=== PATIENT | male | born 1960 | race Caucasian/White ===

== ENCOUNTER 2021-05-05 12:58 | Inpatient (IN) ==
[2021-05-05] MEDS ORDERED: cefTRIAXone SODIUM 2,000 MG/70 ML BAG IV STA (13:32)
--- NOTE | 2021-05-05 13:36 | Emergency Department Note ---
Impression & Plan S/P total knee replacement, Cellulitis of left leg ED Provider Note CHIEF COMPLAINT: LLE erythema/edema HISTORY OF PRESENT ILLNESS: Misha Melendez is a 60 year old male who recently underwent a left total knee replacement with Dr. Zaldivar on 04/27/20 who presents to the Emergency Department for evaluation of increased erythema and edema to his left lower extremity extending from his knee down his anterior camara which has been worsening over the past few days. Currently, he rates his discomfort as a 4/10 which worsens to palpation of the area. The patient states that he had been doing well following his surgery and his pain has been well controlled with Tramadol. He has been working with physical therapy and states that he had been progressing well until he started to develop the erythema and edema a few days ago. The patient did contact Orthopedics regarding this and was started on Keflex for possible infection, which he states he took one dose of yesterday, however after having a follow up appointment with Dr. Pineda in his office today, there were concerns for cellulitis with need for IV antibiotics so he was referred to the ED for further evaluation. The patient otherwise denies fevers/chills, chest pain, shortness of breath, palpitations, abdominal pain, nausea, vomiting, diarrhea or urinary symptoms. No other acute complaints. REVIEW OF SYSTEMS: 10 systems were reviewed and were negative unless otherwise stated in HPI as above PHYSICAL EXAM: VITALS: Vitals are noted on the nurse's note and reviewed by myself. Hypertensive, vital signs otherwise stable. General: Resting in bed, no acute distress HEENT: Normocephalic, PERRL, EOMI, oropharynx clear Neck: No cervical lymphadenopathy, non-tender, ROM intact without pain Resp: Good inspiratory effort on room air, lung sounds clear bilaterally CV: Regular rate and rhythm, peripheral pulses palpated Abd: Obese, soft, non-tender to palpation MSK/Integumentary: With attention to the LLE, post-op dressing in place to the anterior left knee/camara with dried blood, otherwise dry and intact. Erythema and 2+ pitting edema extending from the left knee down the anterior camara, warm and tender to the touch. ROM of the LLE intact but limited secondary to recent surgery. Moving toes/ankle, sensation and d/p pulse intact. Moving all other extremities without apparent pain or difficulty Neuro: Awake, alert, interacting and answering questions appropriately Differential diagnosis includes cellulitis, abscess, osteomyelitis, septic joint, MRSA infection, DVT, necrotizing fasciitis, dermatitis, drug eruption, as well as others were entertained. EMERGENCY DEPARTMENT COURSE: Physical exam and history were performed. Nursing triage notes, EMR, and medication list were personally reviewed. Patient who recently underwent a left total knee replacement with Dr. Zaldivar on 04/27/20 who presents to the Emergency Department for evaluation of increased erythema and edema to his left lower extremity extending from his knee down his anterior camara which has been worsening over the past few days. After being evaluated by Dr. Pineda in his office today, he was referred to the emergency department for further evaluation and IV antibiotics due to concerns for cellulitis. On exam, with attention to the LLE, postop dressing in place to the anterior left knee/camara with dried blood, otherwise dry and intact. Erythema and 2+ pitting edema extending from the left knee down the anterior camara, warm and tender to the touch. Range of motion of LLE intact but limited secondary to recent surgery. Moving toes/ankle, sensation and DP pulse intact. No other significant findings on exam. X-rays of the left knee and tib/fib were obtained reviewed by radiologist and myself as below. Images did show diffuse prominence of the soft tissues, however no acute osseous pathology. Intact total knee replacement. Labs were obtained and reviewed by myself as below. Of note, no leukocytosis with a WBC of 8.37. Mild anemia with hemoglobin 12.9 consistent with recent surgery. Electrolytes WNL. Renal indices stable. LFTs nondiagnostic. ESR elevated at 70 and CRP elevated at 9.65 consistent with inflammation. Lactate not elevated at 0.5. Blood cultures obtained, pending. I discussed the results of the above findings with the patient and his at bedside. He was started on Rocephin 2 g for cellulitic infection. Dr. Pineda did contact me directly and stated that he would admit the patient for ongoing management. The patient and his verbalized their understanding and agreement with this treatment plan. The chart was completed utilizing i3 membrane Voice Recognition Software. Grammatical errors, random word insertions, pronoun errors, and incomplete sentences are an occasional consequence of this system due to software limitations, ambient noise, and hardware issues. Any formal questions or concerns about the content, text, or information contained within the body of this dictation should be directly addressed to the provider for clarification. Past Med/Surg History Medical History History of asthma Surgical History History of appendectomy History of foot surgery Social History Smoking Status: Former smoker Second Hand Exposure: No; Do You Dip or Chew Tobacco: No; Tobacco Cessation Education Requested by Patient: No Hx Alcohol Use: Yes Hx Substance Use: No Preferred Language: Turkmen International [employer] Required: No Beliefs That Will Affect Care: None marital status: Current Living Situation: Spouse current occupational status: employed Other Information That Helps Us Care for You: No Feels Safe at Home: Yes Safety Concerns: Feels Safe At This Time Assistive Devices: Denture - Upper, Denture - Lower and Walker Allergies Allergies Allergy/AdvReac Type Severity Reaction Status Date / Time ibuprofen [From Advil] AdvReac Intermediate Nose Bleed Unverified 05/05/21 14:21 Home Meds Home Medications Medication Instructions Recorded Confirmed albuterol sulfate 90 mcg/actuation 2 puff INHALATION QID PRN 07/15/20 05/05/21 aerosol inhaler (Ventolin HFA) furosemide 20 mg tablet 20 mg PO QAM 07/15/20 05/05/21 potassium chloride 20 mEq 20 meq PO QAM 07/15/20 05/05/21 tablet,extended release(part/cryst) (Klor-Con M) amlodipine 5 mg tablet 5 mg PO QAM 05/05/21 05/05/21 ascorbic acid (vitamin C) 250 mg 0 mg PO QAM 05/05/21 05/05/21 chewable tablet (Vitamin C) cephalexin 500 mg capsule 500 mg PO TID 05/05/21 05/05/21 cholecalciferol (vitamin D3) 25 0 mcg PO QAM 05/05/21 05/05/21 mcg (1,000 unit) capsule (Vitamin D3) fluticasone furoate 200 1 inh INHALATION BID 05/05/21 05/05/21 mcg-vilanterol 25 mcg/dose inhalation powder (Breo Ellipta) [id number] 8 mg-folic 1 tab-cap PO QAM 05/05/21 05/05/21 ac 400 mcg-vit K 80 mcg chew tablet (Centrum Chewables) tramadol 50 mg tablet 50 mg PO Q4H PRN 05/05/21 05/05/21 zinc 50 mg tablet 0 mg PO QAM 05/05/21 05/05/21 Results & Data (ED) Vital Signs Vital Signs - 24 hr 05/05/21 13:02 05/05/21 16:05 Temperature 36.9 C Temperature Source Temporal Artery Scan Pulse Rate 61 Pulse Rate [Apical] 75 Respiratory Rate 20 18 Blood Pressure 163/95 H Blood Pressure [Right Arm] 168/78 H Blood Pressure Mean 117 Blood Pressure Mean [Right Arm] 108 Pulse Oximetry 94 97 Oxygen Delivery Method Room Air Room Air Sepsis Recent Fever Within 48 Hours No Sepsis New/Unexplained Change in Mental Status No Sepsis Action Taken by Nursing No Action Required Laboratory Data Result diagrams: 05/05/21 14:00 05/05/21 14:00 Lab Results 05/05/21 05/05/21 05/05/21 Range/Units 14:00 14:00 14:00 WBC 8.37 (4.8-10.8) K/uL RBC 4.42 L (4.7-6.1) M/uL Hgb 12.9 L (14.0-18.0) g/dL Hct 40.5 L (42-52) % MCV 91.6 (80-100) fL MCH 29.2 (25-34) pg MCHC 31.9 L (32-36) g/dL RDW Std Deviation 47.8 H (36.4-46.3) fL RDW Coeff of Bette 14.0 (11.5-14.5) % Plt Count 301 (130-400) K/uL MPV 8.9 (7.4-10.4) fL Immature Gran % (Auto) 0.5 % Neut % (Auto) 79.1 % Lymph % (Auto) 10.4 % [place] % (Auto) 7.4 % Eos % (Auto) 2.4 % Baso % (Auto) 0.2 % Neut # (Auto) 6.62 H (1.4-6.5) K/uL Lymph # (Auto) 0.87 L (1.2-3.4) K/uL [place] # (Auto) 0.62 H (0.11-0.59) K/uL Eos # (Auto) 0.20 (0-0.5) K/uL Baso # (Auto) 0.02 (0-0.2) K/uL Immature Gran # (Auto) 0.04 H (0.00-0.02) K/uL ESR 70 H (0-20) mm/hr Sodium 137 (136-145) mmol/L Potassium 4.6 (3.5-5.1) mmol/L Chloride 101 (98-107) mmol/L Carbon Dioxide 31 (21-32) mmol/L Anion Gap 5 (3-11) BUN 19 (6-23) mg/dl Creatinine 0.77 (0.6-1.4) mg/dl Est Cr Clr Drug Dosing Not Reportable Est GFR ( Amer) 113.5 ml/min Est GFR (Non-Af Amer) 97.9 ml/min BUN/Creatinine Ratio 24.7 H (10-20) Glucose 96 (70-99(Fasting)) mg/dl Lactate (0.4-2.0) mmol/L Calcium 8.9 (8.5-10.1) mg/dl Total Bilirubin 0.6 (0.2-1.0) mg/dl AST 15 (13-39) U/L ALT 21 (7-52) U/L Alkaline Phosphatase 55 (34-104) U/L C-Reactive Protein 9.65 H (0-0.5) mg/dl Total Protein 6.5 (6.0-8.3) gm/dl Albumin 3.7 (3.4-5.0) gm/dl Globulin 2.8 (2.5-4.0) gm/dl Albumin/Globulin Ratio 1.3 (0.9-2) SARS-CoV-2, RNA, NAAT (NEGATIVE) 05/05/21 05/05/21 Range/Units 14:00 15:30 WBC (4.8-10.8) K/uL RBC (4.7-6.1) M/uL Hgb (14.0-18.0) g/dL Hct (42-52) % MCV (80-100) fL MCH (25-34) pg MCHC (32-36) g/dL RDW Std Deviation (36.4-46.3) fL RDW Coeff of Bette (11.5-14.5) % Plt Count (130-400) K/uL MPV (7.4-10.4) fL Immature Gran % (Auto) % Neut % (Auto) % Lymph % (Auto) % [place] % (Auto) % Eos % (Auto) % Baso % (Auto) % Neut # (Auto) (1.4-6.5) K/uL Lymph # (Auto) (1.2-3.4) K/uL [place] # (Auto) (0.11-0.59) K/uL Eos # (Auto) (0-0.5) K/uL Baso # (Auto) (0-0.2) K/uL Immature Gran # (Auto) (0.00-0.02) K/uL ESR (0-20) mm/hr Sodium (136-145) mmol/L Potassium (3.5-5.1) mmol/L Chloride (98-107) mmol/L Carbon Dioxide (21-32) mmol/L Anion Gap (3-11) BUN (6-23) mg/dl Creatinine (0.6-1.4) mg/dl Est Cr Clr Drug Dosing Est GFR ( Amer) ml/min Est GFR (Non-Af Amer) ml/min BUN/Creatinine Ratio (10-20) Glucose (70-99(Fasting)) mg/dl Lactate 0.5 (0.4-2.0) mmol/L Calcium (8.5-10.1) mg/dl Total Bilirubin (0.2-1.0) mg/dl AST (13-39) U/L ALT (7-52) U/L Alkaline Phosphatase (34-104) U/L C-Reactive Protein (0-0.5) mg/dl Total Protein (6.0-8.3) gm/dl Albumin (3.4-5.0) gm/dl Globulin (2.5-4.0) gm/dl Albumin/Globulin Ratio (0.9-2) SARS-CoV-2, RNA, NAAT NEGATIVE (NEGATIVE) Administered Medications Acetaminophen (Acetaminophen 325 Mg Tab) 650 mg PO Q6H PRN PRN Reason: Fever or Headache Stop: 06/04/21 16:19 Last Admin: 05/05/21 20:21 Dose: 650 mg Documented by: [id number] Aspirin (Aspirin 81 Mg Ectab) 81 mg PO BID [facility] Stop: 06/04/21 20:59 Last Admin: 05/05/21 20:23 Dose: 81 mg Documented by: [id number] Celecoxib (Celebrex 200 Mg Cap) 200 mg PO BID [facility] Stop: 06/04/21 20:59 Last Admin: 05/05/21 20:23 Dose: 200 mg Documented by: [id number] Sodium Chloride (Nss 1000ml) 1,000 mls @ 75 mls/hr IV .[id number] Stop: 06/04/21 16:29 Last Infusion: 05/05/21 20:23 Dose: 75 mls/hr Documented by: [id number] Admin: 05/05/21 19:03 Dose: 75 mls/hr Documented by: [id number] Cefazolin Sodium 3,000 mg/ (Dextrose) 72.5 mls @ 130 mls/hr IV Q8H [facility]; Protocol Stop: 05/12/21 18:44 Last Infusion: 05/05/21 20:10 Dose: 0 mls/hr Documented by: [id number] Admin: 05/05/21 19:03 Dose: 130 mls/hr Documented by: [id number] Discontinued Medications Ceftriaxone Sodium (Rocephin) 2,000 mg in 70 mls @ 140 mls/hr IV NOW [facility] Stop: 05/05/21 14:01 Last Infusion: 05/05/21 15:37 Dose: 0 mls/hr Documented by: [id number] Admin: 05/05/21 14:32 Dose: 140 mls/hr Documented by: [id number] Imaging Data Radiologist's Impression: Knee X-Ray 05/05/21 13:28 XR knee LT 1 or 2V routine, XR tibia fibula LT 2V CLINICAL HISTORY: recent replacement, erythema/swelling. COMPARISON STUDY: No previous studies for comparison. TECHNIQUE: 2 left knee and AP and lateral left lower leg views FINDINGS: Bones: There is no evidence for an acute fracture or dislocation. There is no lytic or blastic lesion. Joints: The patient is status post total knee replacement with resurfacing of the patella. The prosthetic components are in anatomic alignment. There is no evidence for an intra-articular effusion. The ankle joint space is maintained. Soft tissues: There is diffuse prominence of the soft tissues of the lower leg. However, this appears to relate to the patient's body habitus. There is no radiopaque foreign body. IMPRESSION: No acute osseous pathology. Intact total knee replacement. ACT 112: Negative or not required by law. Electronically signed by: Sundeep Chandler M.D. 05/05/2021 3:35 PM Tibia/Fibula X-Ray 05/05/21 13:28 XR knee LT 1 or 2V routine, XR tibia fibula LT 2V CLINICAL HISTORY: recent replacement, erythema/swelling. COMPARISON STUDY: No previous studies for comparison. TECHNIQUE: 2 left knee and AP and lateral left lower leg views FINDINGS: Bones: There is no evidence for an acute fracture or dislocation. There is no lytic or blastic lesion. Joints: The patient is status post total knee replacement with resurfacing of the patella. The prosthetic components are in anatomic alignment. There is no evidence for an intra-articular effusion. The ankle joint space is maintained. Soft tissues: There is diffuse prominence of the soft tissues of the lower leg. However, this appears to relate to the patient's body habitus. There is no radiopaque foreign body. IMPRESSION: No acute osseous pathology. Intact total knee replacement. ACT 112: Negative or not required by law. Electronically signed by: Sundeep Chandler M.D. 05/05/2021 3:35 PM Discharge Plan Visit Data Chief Complaint: Swelling/Edema to Extremity Stated Complaint: CELLULITIS, SWOLLEN AND RED LT LEG ED Provider: Italo Cam ED Midlevel Provider: Solange Prieto Discharge Problem: S/P total knee replacement, Cellulitis of left leg Patient Disposition: Admitted As Inpatient Discharge Instructions Interventions: ED Discharge Assessment Last Done: 05/05/21 19:37
[2021-05-05 14:16] LABS: Basophils # (auto) 0.02 K/uL (0-0.2); Basophils % (auto) 0.2 %; Eosinophils % (auto) 2.4 %; Hematocrit (blood only) 40.5 % (42-52); Hemoglobin 12.9 g/dL (14.0-18.0); Immature Granulocytes # (auto) 0.04 K/uL (0.00-0.02); Immature Granulocytes % (auto) 0.5 %; Lymphocytes # (auto) 0.87 K/uL (1.2-3.4); Lymphocytes % (auto) 10.4 %; Mean Corpuscular Hemoglobin 29.2 pg (25-34); Mean Corpuscular Hgb Conc 31.9 g/dL (32-36); Mean Corpuscular Volume 91.6 fL (80-100); Mean Platelet Volume 8.9 fL (7.4-10.4); Monocytes # (auto) 0.62 K/uL (0.11-0.59); Monocytes % (auto) 7.4 %; Neutrophils # (auto) 6.62 K/uL (1.4-6.5); Neutrophils % (auto) 79.1 %; Platelet Count 301 K/uL (130-400); RDW Standard Deviation 47.8 fL (36.4-46.3); Red Blood Count 4.42 M/uL (4.7-6.1); White Blood Count 8.37 K/uL (4.8-10.8)
[2021-05-05 14:48] LABS: Alanine Aminotransferase 21 U/L (7-52); Albumin Globulin Ratio 1.3 (0.9-2); Albumin Level 3.7 gm/dl (3.4-5.0); Alkaline Phosphatase 55 U/L (34-104); Anion Gap 5 (3-11); Aspartate Aminotransferase 15 U/L (13-39); BUN Creatinine Ratio 24.7 (10-20); Bilirubin,Total 0.6 mg/dl (0.2-1.0); Blood Urea Nitrogen 19 mg/dl (6-23); C Reactive Protein 9.65 mg/dl (0-0.5); Calcium 8.9 mg/dl (8.5-10.1); Carbon Dioxide 31 mmol/L (21-32); Chloride 101 mmol/L (98-107); Est GFR (African American) 113.5 ml/min; Est GFR (Non-African American) 97.9 ml/min; Globulin 2.8 gm/dl (2.5-4.0); Glucose 96 mg/dl (70-99(Fasting)); Potassium 4.6 mmol/L (3.5-5.1); Sodium 137 mmol/L (136-145); Total Protein 6.5 gm/dl (6.0-8.3)
--- NOTE | 2021-05-05 15:36 | XRay Report ---
XR knee LT 1 or 2V routine, XR tibia fibula LT 2V CLINICAL HISTORY: recent replacement, erythema/swelling. COMPARISON STUDY: No previous studies for comparison. TECHNIQUE: 2 left knee and AP and lateral left lower leg views FINDINGS: Bones: There is no evidence for an acute fracture or dislocation. There is no lytic or blastic lesion . Joints: The patient is status post total knee replacement with resurfacing of the patella. The prosth etic components are in anatomic alignment. There is no evidence for an intra-articular effusion. The ankle joint space is maintained. Soft tissues: There is diffuse prominence of the soft tissues of the lower leg. However, this appears to relate to the patient's body habitus. There is no radiopaque foreign body. IMPRESSION: No acute osseous pathology. Intact total knee replacement. ACT 112: Negative or not required by law. Electronically signed by: Sundeep Chandler M.D. 05/05/2021 3:35 PM
[2021-05-05] MEDS ORDERED: ALUMINUM/MAGNESIUM SUSP 30 ML UDC PO PRN (16:20)
[2021-05-05] MEDS ORDERED: MAGNESIUM HYDROXIDE SUSP 30 ML UDC PO PRN (16:20)
[2021-05-05] MEDS ORDERED: ONDANSETRON INJ 2 MG/ML 2 ML VIAL IV PRN (16:20)
[2021-05-05] MEDS ORDERED: HYDROmorphone INJ 0.5 MG/0.5 ML SYR IV PRN (16:26)
[2021-05-05] MEDS ORDERED: ceFAZolin 2000MG 2,000 MG/15 ML SYR IV SCH (16:30)
--- NOTE | 2021-05-05 16:50 | History & Physical Report ---
Date of Service May 05, 2021 Assessment & Plan (1) Cellulitis: Plan: Cellulitis left lower extremity status post left TKA 8 days ago. This does not appear to be a septic joint. Patient will be started on cefazolin 2000 mg IV every 8 hours. We will continue with elevation. Continue with DVT prophylaxis with aspirin 81 mg p.o. twice daily which was started postoperatively. Continue to follow his progress and adjust antibiotics as needed. History of Present Illness Chief Complaint: Redness and pain left lower leg Primary Care Provider: Jonny Cooley MD Patient is a 60-year-old male who has undergone left total knee arthroplasty by Dr. Karl Zaldivar approximately 8 days ago. The patient states that his surgery went well and he stayed overnight and was discharged home the following day. His recovery was going well with his physical therapy and he was not having any problems. He began noticing some erythema developing on the lower extremity at the distal end of the incision which began to increase over time. He called the office yesterday of which at that time he was started on cephalexin. The patient states that this did not seem to be helping and the erythema and swelling of his lower extremity continue to worsen. The patient was advised to come into the emergency room where he was seen by the staff. X-rays were taken and showed no bony injury and the prosthesis was well in place. I was called by our office who asked me to evaluate the patient. Currently he is sitting up in his bed awake and alert. He was just ambulating in the room to use the restroom. Patient states that he has no pain with ambulation or weightbearing. No pain with range of motion. He denies fevers or chills. Denies nausea or vomiting. He states he has mild to moderate pain at the distal end of his incision and down the anterior portion of his lower extremity. No other complaints at this time. Allergies Allergy/AdvReac Type Severity Reaction Status Date / Time ibuprofen [From Advil] AdvReac Intermediate Nose Bleed Unverified 05/05/21 14:21 Home Medications Medication Instructions Recorded Confirmed Type albuterol sulfate 90 mcg/actuation 2 puff INHALATION QID PRN 07/15/20 05/05/21 History aerosol inhaler (Ventolin HFA) furosemide 20 mg tablet 20 mg PO QAM 07/15/20 05/05/21 History potassium chloride 20 mEq 20 meq PO QAM 07/15/20 05/05/21 History tablet,extended release(part/cryst) (Klor-Con M) amlodipine 5 mg tablet 5 mg PO QAM 05/05/21 05/05/21 History ascorbic acid (vitamin C) 250 mg 0 mg PO QAM 05/05/21 05/05/21 History chewable tablet (Vitamin C) cephalexin 500 mg capsule 500 mg PO TID 05/05/21 05/05/21 History cholecalciferol (vitamin D3) 25 0 mcg PO QAM 05/05/21 05/05/21 History mcg (1,000 unit) capsule (Vitamin D3) fluticasone furoate 200 1 inh INHALATION BID 05/05/21 05/05/21 History mcg-vilanterol 25 mcg/dose inhalation powder (Breo Ellipta) [id number] 8 mg-folic 1 tab-cap PO QAM 05/05/21 05/05/21 History ac 400 mcg-vit K 80 mcg chew tablet (Centrum Chewables) tramadol 50 mg tablet 50 mg PO Q4H PRN 05/05/21 05/05/21 History zinc 50 mg tablet 0 mg PO QAM 05/05/21 05/05/21 History Past Med/Surg History Medical History History of asthma Surgical History History of appendectomy History of foot surgery Social History Smoking Status: Former smoker marital status: current occupational status: employed Feels Safe at Home: Yes Review of Systems Review of Systems: All systems reviewed & are unremarkable except as noted in HPI & below Physical Exam Constitutional: WD/WN, vitals as above Eyes: PERRL, conjunctivae normal, anicteric sclerae ENMT: external ear and nose normal, oropharynx normal Neck: Supple without bruits Respiratory: normal respiratory effort, lungs clear to auscultation Cardiovascular: RRR, no murmur, no edema Gastrointestinal (Abdomen): Obese, bowel sounds present and active x4, nontender on palpation Musculoskeletal: On examination of his left lower extremity, he has a melvin dressing in place. He has noted bright erythema at the distal portion of his dressing/wound that travels down the lower extremity to the ankle. He does have swelling of the lower extremity below the knee down to the ankle and foot. I removed the melvin dressing. His wound is well approximated. The erythema starts at about a quarter of the way up his distal incision line and travels distally. There is no purulence. A few of the Steri-Strips that have been placed across his incision came off with the melvin dressing. These were replaced. He has tenderness on palpation of the anterior portion of the lower extremity. I cannot appreciate any fluctuance. I can take him through gentle range of motion of the left knee without pain in the knee. I also saw the patient ambulating in his room without pain in the knee during his ambulation with weightbearing. He has good range of motion of his left ankle and toes. The rest of his incision does not have any erythema traveling proximally. No erythema of the thigh. Hip is nontender and range of motion is within normal limits. Right lower extremity is unaffected and is within normal limits. Upper extremities are unaffected and are also within normal limits for range of motion etc. Distal pulses are equal bilaterally of the upper and lower extremities. There is no gross motor or sensory loss seen at this time. Skin: Erythema as noted in the musculoskeletal section. Results & Data Results & Data ([facility]) Vital Signs (Past 12 Hours) Vital Signs Temp Pulse Pulse Resp BP BP Pulse Ox 05/05/21 16:05 75 18 168/78 H 97 05/05/21 13:02 36.9 C 61 20 163/95 H 94 Laboratory Results Laboratory Results WBC 8.37 K/uL (4.8-10.8) 05/05/21 14:00 RBC 4.42 M/uL (4.7-6.1) L 05/05/21 14:00 Hgb 12.9 g/dL (14.0-18.0) L 05/05/21 14:00 Hct 40.5 % (42-52) L 05/05/21 14:00 MCV 91.6 fL (80-100) 05/05/21 14:00 MCH 29.2 pg (25-34) 05/05/21 14:00 MCHC 31.9 g/dL (32-36) L 05/05/21 14:00 RDW Std Deviation 47.8 fL (36.4-46.3) H 05/05/21 14:00 RDW Coeff of Bette 14.0 % (11.5-14.5) 05/05/21 14:00 Plt Count 301 K/uL (130-400) 05/05/21 14:00 MPV 8.9 fL (7.4-10.4) 05/05/21 14:00 Immature Gran % (Auto) 0.5 % 05/05/21 14:00 Neut % (Auto) 79.1 % 05/05/21 14:00 Lymph % (Auto) 10.4 % 05/05/21 14:00 [place] % (Auto) 7.4 % 05/05/21 14:00 Eos % (Auto) 2.4 % 05/05/21 14:00 Baso % (Auto) 0.2 % 05/05/21 14:00 Neut # (Auto) 6.62 K/uL (1.4-6.5) H 05/05/21 14:00 Lymph # (Auto) 0.87 K/uL (1.2-3.4) L 05/05/21 14:00 [place] # (Auto) 0.62 K/uL (0.11-0.59) H 05/05/21 14:00 Eos # (Auto) 0.20 K/uL (0-0.5) 05/05/21 14:00 Baso # (Auto) 0.02 K/uL (0-0.2) 05/05/21 14:00 Immature Gran # (Auto) 0.04 K/uL (0.00-0.02) H 05/05/21 14:00 ESR 70 mm/hr (0-20) H 05/05/21 14:00 Sodium 137 mmol/L (136-145) 05/05/21 14:00 Potassium 4.6 mmol/L (3.5-5.1) 05/05/21 14:00 Chloride 101 mmol/L (98-107) 05/05/21 14:00 Carbon Dioxide 31 mmol/L (21-32) 05/05/21 14:00 Anion Gap 5 (3-11) 05/05/21 14:00 BUN 19 mg/dl (6-23) 05/05/21 14:00 Creatinine 0.77 mg/dl (0.6-1.4) 05/05/21 14:00 Est Cr Clr Drug Dosing Not Reportable 05/05/21 14:00 Est GFR ( Amer) 113.5 ml/min 05/05/21 14:00 Est GFR (Non-Af Amer) 97.9 ml/min 05/05/21 14:00 BUN/Creatinine Ratio 24.7 (10-20) H 05/05/21 14:00 Glucose 96 mg/dl (70-99(Fasting)) 05/05/21 14:00 Lactate 0.5 mmol/L (0.4-2.0) 05/05/21 14:00 Calcium 8.9 mg/dl (8.5-10.1) 05/05/21 14:00 Total Bilirubin 0.6 mg/dl (0.2-1.0) 05/05/21 14:00 AST 15 U/L (13-39) 05/05/21 14:00 ALT 21 U/L (7-52) 05/05/21 14:00 Alkaline Phosphatase 55 U/L (34-104) 05/05/21 14:00 C-Reactive Protein 9.65 mg/dl (0-0.5) H 05/05/21 14:00 Total Protein 6.5 gm/dl (6.0-8.3) 05/05/21 14:00 Albumin 3.7 gm/dl (3.4-5.0) 05/05/21 14:00 Globulin 2.8 gm/dl (2.5-4.0) 05/05/21 14:00 Albumin/Globulin Ratio 1.3 (0.9-2) 05/05/21 14:00 SARS-CoV-2, RNA, NAAT NEGATIVE (NEGATIVE) 05/05/21 15:30 Impressions Knee X-Ray 05/05/21 13:28 XR knee LT 1 or 2V routine, XR tibia fibula LT 2V CLINICAL HISTORY: recent replacement, erythema/swelling. COMPARISON STUDY: No previous studies for comparison. TECHNIQUE: 2 left knee and AP and lateral left lower leg views FINDINGS: Bones: There is no evidence for an acute fracture or dislocation. There is no lytic or blastic lesion. Joints: The patient is status post total knee replacement with resurfacing of the patella. The prosthetic components are in anatomic alignment. There is no evidence for an intra-articular effusion. The ankle joint space is maintained. Soft tissues: There is diffuse prominence of the soft tissues of the lower leg. However, this appears to relate to the patient's body habitus. There is no radiopaque foreign body. IMPRESSION: No acute osseous pathology. Intact total knee replacement. ACT 112: Negative or not required by law. Electronically signed by: Sundeep Chandler M.D. 05/05/2021 3:35 PM Tibia/Fibula X-Ray 05/05/21 13:28 XR knee LT 1 or 2V routine, XR tibia fibula LT 2V CLINICAL HISTORY: recent replacement, erythema/swelling. COMPARISON STUDY: No previous studies for comparison. TECHNIQUE: 2 left knee and AP and lateral left lower leg views FINDINGS: Bones: There is no evidence for an acute fracture or dislocation. There is no lytic or blastic lesion. Joints: The patient is status post total knee replacement with resurfacing of the patella. The prosthetic components are in anatomic alignment. There is no evidence for an intra-articular effusion. The ankle joint space is maintained. Soft tissues: There is diffuse prominence of the soft tissues of the lower leg. However, this appears to relate to the patient's body habitus. There is no radiopaque foreign body. IMPRESSION: No acute osseous pathology. Intact total knee replacement. ACT 112: Negative or not required by law. Electronically signed by: Sundeep Chandler M.D. 05/05/2021 3:35 PM Code Status & VTE Plan VTE Prophylaxis Plan VTE Prophylaxis will be ordered: Yes
[2021-05-05] MEDS: ceFAZolin 3,000 MG in DEXTROSE 5% 50 ML IV SCH (19:03)
[2021-05-05] MEDS: SODIUM CHLORIDE 0.9% 1000ML 1,000 ML IV SCH (19:03)
[2021-05-05] MEDS: ACETAMINOPHEN 325 MG TAB PO PRN (20:21)
[2021-05-05] MEDS: CeleBREX 200 MG CAP PO SCH (20:23)
[2021-05-05] MEDS: ASPIRIN 81 MG ECTAB PO SCH (20:23)
[2021-05-06] MEDS: ceFAZolin 3,000 MG in DEXTROSE 5% 50 ML IV SCH ×3 (02:45→18:03)
[2021-05-06 06:47] LABS: Basophils # (auto) 0.02 K/uL (0-0.2); Basophils % (auto) 0.3 %; Eosinophils % (auto) 2.6 %; Hematocrit (blood only) 39.4 % (42-52); Hemoglobin 12.4 g/dL (14.0-18.0); Immature Granulocytes # (auto) 0.01 K/uL (0.00-0.02); Immature Granulocytes % (auto) 0.1 %; Lymphocytes # (auto) 0.71 K/uL (1.2-3.4); Lymphocytes % (auto) 9.2 %; Mean Corpuscular Hgb Conc 31.5 g/dL (32-36); Mean Corpuscular Volume 92.1 fL (80-100); Mean Platelet Volume 8.9 fL (7.4-10.4); Monocytes # (auto) 0.81 K/uL (0.11-0.59); Monocytes % (auto) 10.5 %; Neutrophils # (auto) 5.99 K/uL (1.4-6.5); Neutrophils % (auto) 77.3 %; Platelet Count 316 K/uL (130-400); RDW Coefficient of Variation 14.3 % (11.5-14.5); RDW Standard Deviation 48.6 fL (36.4-46.3); Red Blood Count 4.28 M/uL (4.7-6.1); White Blood Count 7.74 K/uL (4.8-10.8)
[2021-05-06 07:48] LABS: BUN Creatinine Ratio 18.1 (10-20); Calcium 8.5 mg/dl (8.5-10.1); Creatinine Clr Calc Pharmacy 156.1 ml/min; Est GFR (African American) 110.1 ml/min; Potassium 4.4 mmol/L (3.5-5.1)
[2021-05-06] MEDS: ASPIRIN 81 MG ECTAB PO SCH ×2 (08:34→20:10)
[2021-05-06] MEDS: CeleBREX 200 MG CAP PO SCH ×2 (08:35→20:09)
[2021-05-06] MEDS: SODIUM CHLORIDE 0.9% 1000ML 1,000 ML IV SCH ×2 (09:19→23:14)
--- NOTE | 2021-05-06 10:59 | Orthopedic Progress Note ---
Date of Service May 06, 2021 Assessment & Plan (1) Cellulitis of left leg: Plan: At this time we will continue IV antibiotics hopefully plan for discharge the next few days. Admission and Anticipated Discharge Date Admission Date: May 05, 2021 Subjective Patient states he is comfortable. He denies any increased pain to the left low er extremity. Denies any fevers and chills. Physical Exam Physical Exam: Left lower extremity is definitely still quite swollen with pitting edema and marked erythema. He is neurologically intact. Results & Data ([facility]) Vital Signs (Past 12 Hours) Vital Signs Temp Pulse Resp BP Pulse Ox 05/06/21 06:55 36.9 C 56 L 16 128/68 92
--- NOTE | 2021-05-06 11:04 | Orthopedic Progress Note ---
Date of Service May 06, 2021 Assessment & Plan (1) Cellulitis of left leg: Plan: Hospital day one cellulitis left lower extremity status post left TKA A little bit of improvement noted in the LLE cellulitis We can begin physical therapy protocol today. Gentle range of motion of the left knee. Weightbearing as tolerated. Limited ambulation. DVT prophylaxis-aspirin p.o. twice daily. Pain management as written. Continue IV antibiotics at this time. Patient may require another 24 to 48 hours. Admission and Anticipated Discharge Date Admission Date: May 05, 2021 Subjective Hospital day one Patient is awake and alert sitting up at the bedside. No new complaints today. He feels that his leg is feeling a little bit better today. Physical Exam Physical Exam: Erythema continues on the left lower extremity however today the erythema appears to be a little bit sales specialist in color and patient is having less pain on palpation. Lower extremity edema. Calves are remaining soft and nontender. Neurovascular intact. Toes are mobile. Results & Data ([facility]) Vital Signs (Past 12 Hours) Vital Signs Temp Pulse Resp BP Pulse Ox 05/06/21 06:55 36.9 C 56 L 16 128/68 92 Laboratory Results Laboratory Results WBC 7.74 K/uL (4.8-10.8) 05/06/21 06:11 RBC 4.28 M/uL (4.7-6.1) L 05/06/21 06:11 Hgb 12.4 g/dL (14.0-18.0) L 05/06/21 06:11 Hct 39.4 % (42-52) L 05/06/21 06:11 MCV 92.1 fL (80-100) 05/06/21 06:11 MCH 29.0 pg (25-34) 05/06/21 06:11 MCHC 31.5 g/dL (32-36) L 05/06/21 06:11 RDW Std Deviation 48.6 fL (36.4-46.3) H 05/06/21 06:11 RDW Coeff of Bette 14.3 % (11.5-14.5) 05/06/21 06:11 Plt Count 316 K/uL (130-400) 05/06/21 06:11 MPV 8.9 fL (7.4-10.4) 05/06/21 06:11 Immature Gran % (Auto) 0.1 % 05/06/21 06:11 Neut % (Auto) 77.3 % 05/06/21 06:11 Lymph % (Auto) 9.2 % 05/06/21 06:11 [place] % (Auto) 10.5 % 05/06/21 06:11 Eos % (Auto) 2.6 % 05/06/21 06:11 Baso % (Auto) 0.3 % 05/06/21 06:11 Neut # (Auto) 5.99 K/uL (1.4-6.5) 05/06/21 06:11 Lymph # (Auto) 0.71 K/uL (1.2-3.4) L 05/06/21 06:11 [place] # (Auto) 0.81 K/uL (0.11-0.59) H 05/06/21 06:11 Eos # (Auto) 0.20 K/uL (0-0.5) 05/06/21 06:11 Baso # (Auto) 0.02 K/uL (0-0.2) 05/06/21 06:11 Immature Gran # (Auto) 0.01 K/uL (0.00-0.02) 05/06/21 06:11 ESR 70 mm/hr (0-20) H 05/05/21 14:00 Sodium 136 mmol/L (136-145) 05/06/21 06:11 Potassium 4.4 mmol/L (3.5-5.1) 05/06/21 06:11 Chloride 102 mmol/L (98-107) 05/06/21 06:11 Carbon Dioxide 28 mmol/L (21-32) 05/06/21 06:11 Anion Gap 6 (3-11) 05/06/21 06:11 BUN 15 mg/dl (6-23) 05/06/21 06:11 Creatinine 0.83 mg/dl (0.6-1.4) 05/06/21 06:11 Est Cr Clr Drug Dosing 156.1 ml/min 05/06/21 06:11 Est GFR ( Amer) 110.1 ml/min 05/06/21 06:11 Est GFR (Non-Af Amer) 95.0 ml/min 05/06/21 06:11 BUN/Creatinine Ratio 18.1 (10-20) 05/06/21 06:11 Glucose 117 mg/dl (70-99(Fasting)) H 05/06/21 06:11 Lactate 0.5 mmol/L (0.4-2.0) 05/05/21 14:00 Calcium 8.5 mg/dl (8.5-10.1) 05/06/21 06:11 Total Bilirubin 0.6 mg/dl (0.2-1.0) 05/05/21 14:00 AST 15 U/L (13-39) 05/05/21 14:00 ALT 21 U/L (7-52) 05/05/21 14:00 Alkaline Phosphatase 55 U/L (34-104) 05/05/21 14:00 C-Reactive Protein 9.65 mg/dl (0-0.5) H 05/05/21 14:00 Total Protein 6.5 gm/dl (6.0-8.3) 05/05/21 14:00 Albumin 3.7 gm/dl (3.4-5.0) 05/05/21 14:00 Globulin 2.8 gm/dl (2.5-4.0) 05/05/21 14:00 Albumin/Globulin Ratio 1.3 (0.9-2) 05/05/21 14:00 SARS-CoV-2, RNA, NAAT NEGATIVE (NEGATIVE) 05/05/21 15:30
[2021-05-06] MEDS: traMADol HCL 50 MG TABLET PO PRN (20:09)
[2021-05-07] MEDS: ceFAZolin 3,000 MG in DEXTROSE 5% 50 ML IV SCH ×3 (02:11→17:59)
[2021-05-07] MEDS: ASPIRIN 81 MG ECTAB PO SCH ×2 (08:10→19:34)
[2021-05-07] MEDS: CeleBREX 200 MG CAP PO SCH ×2 (08:10→19:35)
[2021-05-07] MEDS: ACETAMINOPHEN 325 MG TAB PO PRN (08:14)
--- NOTE | 2021-05-07 09:45 | Orthopedic Progress Note ---
Date of Service May 07, 2021 Assessment & Plan (1) Cellulitis of left leg: Plan: Hospital day 2 cellulitis left lower extremity status post left TKA More improvement noted today but still will require at least another 24 hours of antibx. I discussed this with the patient. We discussed it's better to make sure we're heading in the right direction with his healing before letting him go home. Discussed scenario's that could happen if letting him go home too soon. Pt understands and is agreeable. Continue PT. Gentle range of motion of the left knee. Weightbearing as tolerated. Limited ambulation. Discussed not trying to overdo his ROM at this time. DVT prophylaxis-aspirin p.o. twice daily. Pain management as written. Continue IV antibiotics. Possible change in antibiotics if not improving overall. Admission and Anticipated Discharge Date Admission Date: May 05, 2021 Supervising Physician Co-Signing Physician Notes Patient seen and examined. Agree with MARY Leon's note as above. Patient with significant left lower leg erythema, pain, and swelling. I agree that this is most likely consistent with cellulitis. No evidence of periprosthetic infection. His incision is well-healed and benign without any drainage or evidence of infection. He is able to ambulate and go through knee range of motion without significant pain in his knee. He notes significant improvement in his pain and erythema with IV antibiotic medication. He does have a negative Homans exam. However, with the appearance of his leg and his recent knee replacement I would like to make sure he does not have a DVT in that left leg. We will put in for DVT ultrasound. Continue with IV antibiotics for now. The e rythema still seems a little too significant to discharge home at this point on oral antibiotics. He is currently receiving aspirin 81 mg daily, as well as ambulation for DVT prophylaxis. I will add SCDs for his nonoperative right leg. Subjective Hospital day 2 Patient is sitting in a chair at the bedside. Leg is elevated. He had just finished up with some physical therapy. No new complaints today. Pain controlled. Physical Exam Physical Exam: His knee incision continues to appear benign other than the distal section which does have some cellulitis incorporated into it. I am seeing improvement in his cellulitis of the lower extremity. Most of the distal erythema is now civil attorney in color. Continues with some deep rubor around the distal incision. No drainage from the wound. Continues to remain pain free when taking his knee through ROM and Weight bearing. Calves are soft, NT. NV intact. Toes mobile. Negative Vianey's exam. Results & Data ([facility]) Vital Signs (Past 12 Hours) Vital Signs Temp Pulse Resp BP Pulse Ox 05/07/21 08:02 36.8 C 60 16 144/81 H 95 05/06/21 22:40 37 C 63 22 132/76 95
[2021-05-07] MEDS: SODIUM CHLORIDE 0.9% 1000ML 1,000 ML IV SCH (10:03)
[2021-05-07] MEDS: traMADol HCL 50 MG TABLET PO PRN ×2 (17:34→23:13)
--- NOTE | 2021-05-07 20:22 | Ultrasound Report ---
LEFT LOWER EXTREMITY VENOUS DOPPLER HISTORY: Left leg pain, swelling; eval for DVT COMPARISON STUDY: None. FINDINGS: There is normal compressibility, flow, and augmentation within the left lower extremity areli p venous system. IMPRESSION: No DVT within the left lower extremity. ACT 112: Negative or not required by law. Electronically signed by: Kobi Zaidi M.D. 05/07/2021 8:21 PM
[2021-05-08] MEDS: ceFAZolin 3,000 MG in DEXTROSE 5% 50 ML IV SCH ×3 (03:51→17:50)
[2021-05-08] MEDS: ACETAMINOPHEN 325 MG TAB PO PRN ×2 (07:41→19:58)
[2021-05-08] MEDS: CeleBREX 200 MG CAP PO SCH ×2 (07:42→19:57)
[2021-05-08] MEDS: ASPIRIN 81 MG ECTAB PO SCH ×2 (07:42→19:58)
--- NOTE | 2021-05-08 10:52 | Orthopedic Progress Note ---
Date of Service May 08, 2021 Assessment & Plan (1) Cellulitis of left leg: Plan: Hospital day 2 cellulitis left lower extremity status post left TKA Continues slow improvement noted today but still will require at least another 24 hours of antibx. Discussed scenario's that could happen if letting him go home too soon. Pt understands and is agreeable. Continue PT. Gentle range of motion of the left knee. Weightbearing as tolerated. Limited ambulation. Discussed not trying to overdo his ROM at this time. DVT prophylaxis-aspirin p.o. twice daily. Pain management as written. Continue IV antibiotics. Possible change in antibiotics if not improving overal l. Admission and Anticipated Discharge Date Admission Date: May 05, 2021 Subjective HD 3 Pt sitting up in recliner chair with leg elevated. No complaints today. US LLE done last night per Dr. Bajwa. Negative for DVT. Physical Exam Physical Exam: Cellulitis continues to slowly resolve. The most improvement seen today is around his distal incision area. The cellulitis has improved but not cleared. Continues with pitting edema below the knee with only mild tenderness. Mild improvement on the lower leg. Results & Data ([facility]) Vital Signs (Past 12 Hours) Vital Signs Temp Pulse Resp BP BP Pulse Ox 05/08/21 07:08 36.8 C 58 L 18 149/87 H 94 05/07/21 23:37 36.8 C 60 20 127/77 94 Diagnostic Findings [place], [place] [phone] Ultrasound Report Patient:JAMAR HAYES Admit Date:05/05/21 MR#:[id number] Address1:[address] [place] [address] Acct ID:[id number] Address2: Date:1960 [facility] Zip:[place] [address] Age:60 Location: Sex:M Room/Bed:[facility] Att Phy:Louie Bajwa M.D. Diagnosis:CELLULITIS S/P LEFT TKA Carri Phy:Jonny Cooley MD Service Date:05/07/21 Fam Phy: Interpreting Phy:Kobi Zaidi MDAdmit Phy:Louie Bajwa M.D. Ordering Phy:Louie Bajwa M.D. cc: ~ LEFT LOWER EXTREMITY VENOUS DOPPLER HISTORY: Left leg pain, swelling; eval for DVT COMPARISON STUDY: None. FINDINGS: There is normal compressibility, flow, and augmentation within the left lower extremity deep venous system. IMPRESSION: No DVT within the left lower extremity.
[2021-05-08] MEDS: traMADol HCL 50 MG TABLET PO PRN ×3 (13:16→23:21)
[2021-05-09] MEDS: ceFAZolin 3,000 MG in DEXTROSE 5% 50 ML IV SCH ×3 (03:29→17:56)
[2021-05-09] MEDS: ACETAMINOPHEN 325 MG TAB PO PRN ×2 (08:10→20:00)
[2021-05-09] MEDS: CeleBREX 200 MG CAP PO SCH ×2 (08:11→20:00)
[2021-05-09] MEDS: ASPIRIN 81 MG ECTAB PO SCH ×2 (08:11→20:00)
--- NOTE | 2021-05-09 12:38 | Orthopedic Progress Note ---
Date of Service May 09, 2021 Assessment & Plan (1) Cellulitis of left leg: Plan: Hospital day 5 cellulitis left lower extremity status post left TKA We will continue with IV antibiotics throughout today into tomorrow morning. We discussed the plan of discharging home on oral antibiotics tomorrow. He is scheduled to follow-up with Dr. Zaldivar on 05/12/2021. Continue PT. Gentle range of motion of the left knee. Weightbearing as tolerated. Limited ambulation. Discussed not trying to overdo his ROM at this time. DVT prophylaxis-aspirin p.o. twice daily. Pain management as written. Continue IV antibiotics. Possible change in antibiotics if not improving ove rall. Admission and Anticipated Discharge Date Admission Date: May 05, 2021 Subjective HD 5 Pt sitting up in recliner chair with leg elevated. No complaints today. The patient states he feels his leg is improved. He would like to be discharged home as soon as possible. Physical Exam Constitutional: WD/WN, vitals as above no acute distress Musculoskeletal: Knee: + skin erythema (Left lower leg erythema has improved but still moderately swollen.) and + surgical incision (Well approximated left knee incision); no ecchymosis Skin: + skin tightening (Left lower leg) and + erythema (Mild to moderate left lower leg but improved) Neurologic: normal touch/pain/proprioception Psychiatric: A+Ox3, euthymic affect Speech: normal rate/rhythm/volume of speech Results & Data ([facility]) Vital Signs (Past 12 Hours) Vital Signs Temp Pulse Resp BP Pulse Ox 05/09/21 07:49 36.9 C 57 L 16 133/76 93
[2021-05-09] MEDS: traMADol HCL 50 MG TABLET PO PRN (23:46)
[2021-05-10] MEDS: ceFAZolin 3,000 MG in DEXTROSE 5% 50 ML IV SCH ×2 (02:30→10:13)
[2021-05-10] MEDS: ACETAMINOPHEN 325 MG TAB PO PRN (08:41)
[2021-05-10] MEDS: CeleBREX 200 MG CAP PO SCH (08:41)
[2021-05-10] MEDS: ASPIRIN 81 MG ECTAB PO SCH (08:41)
[2021-05-10] MEDS: traMADol HCL 50 MG TABLET PO PRN (08:44)
--- NOTE | 2021-05-10 09:08 | Orthopedic Progress Note ---
Date of Service May 10, 2021 Assessment & Plan (1) Cellulitis of left leg: Plan: Hospital day 6 cellulitis left lower extremity status post left TKA Continue PT. Gentle range of motion of the left knee. Weightbearing as tolerated. Limited ambulation. Discussed not trying to overdo his ROM at this time. DVT prophylaxis-aspirin p.o. twice daily. Pain management as written. Discharge planninghome today on oral antibiotics. Discussed use of Keflex and Bactrim until reevaluated by Dr. Zaldivar on 05/12/2021. Admission and Anticipated Discharge Date Admission Date: May 05, 2021 Subjective HD 6 Pt sitting up in recliner chair with leg elevated. No complaints today. The patient states he feels his leg is improved. Physical Exam Constitutional: WD/WN, vitals as above no acute distress Musculoskeletal: Knee: + skin erythema (Left lower leg erythema has improved but still moderately swollen.) and + surgical incision (Well approximated left knee incision); no ecchymosis Skin: + skin tightening (Left lower leg) and + erythema (Mild to moderate left lower leg but improved) Neurologic: normal touch/pain/proprioception Psychiatric: A+Ox3, euthymic affect Speech: normal rate/rhythm/volume of speech Results & Data ([facility]) Vital Signs (Past 12 Hours) Vital Signs Temp Pulse Resp BP Pulse Ox 05/10/21 07:29 36.8 C 70 16 147/89 H 96 05/09/21 22:05 36.8 C 50 L 18 137/70 95
--- NOTE | 2021-05-21 10:07 | Discharge Summary ---
Date of Service May 21, 2021 Admission HPI Per Admitting Provider Patient is a 60-year-old male who has undergone left total knee arthroplasty by Dr. Karl Zaldivar approximately 8 days ago. The patient states that his surgery went well and he stayed overnight and was discharged home the following day. His recovery was going well with his physical therapy and he was not having any problems. He began noticing some erythema developing on the lower extremity at the distal end of the incision which began to increase over time. He called the office yesterday of which at that time he was started on cephalexin. The patient states that this did not seem to be helping and the erythema and swelling of his lower extremity continue to worsen. The patient was advised to come into the emergency room where he was seen by the staff. X-rays were taken and showed no bony injury and the prosthesis was well in place. I was called by our office who asked me to evaluate the patient. Currently he is sitting up in his bed awake and alert. He was just ambulating in the room to use the restroom. Patient states that he has no pain with ambulation or weightbearing. No pain with range of motion. He denies fevers or chills. Denies nausea or vomiting. He states he has mild to moderate pain at the distal end of his incision and down the anterior portion of his lower extremity. No other complaints at this time. Principal Diagnosis left lower leg cellulitis Discharge Exam Constitutional WD/WN, vitals as above no acute distress Musculoskeletal Knee: + skin erythema (Left lower leg erythema has improved but still moderately swollen.) and + surgical incision (Well approximated left knee incision); no ecchymosis Skin + skin tightening (Left lower leg) and + erythema (Mild to moderate left lower leg but improved) Neurologic normal touch/pain/proprioception Psychiatric A+Ox3, euthymic affect Speech: normal rate/rhythm/volume of speech Discharge Data Allergies Allergy/AdvReac Type Severity Reaction Status Date / Time ibuprofen [From Advil] AdvReac Intermediate Nose Bleed Unverified 05/05/21 14:21 Consultations 05/05/21 13:34 ED Decision to Admit Stat Ordered Studies 05/07/21 17:59 US venous doppler LE LT Urgent Hospital Course (1) Cellulitis of left leg: Hospital day 6 cellulitis left lower extremity status post left TKA Continue PT. Gentle range of motion of the left knee. Weightbearing as tolerated. Limited ambulation. Discussed not trying to overdo his ROM at this time. DVT prophylaxis-aspirin p.o. twice daily. Pain management as written. Discharge planninghome today on oral antibiotics. Discussed use of Keflex and Bactrim until reevaluated by Dr. Zaldivar on 05/12/2021. Total Time Total Time Spent Total Time Spent (In Minutes): 120 Discharge Plan Discharge Items Patient Disposition: Home - Home Health Services Reason For Visit: CELLULITIS S/P LEFT TKA Discharge Diagnosis: Cellulitis Lower leg Activity: Per Instructions section Non-emergency contact: Surgeon Call non-emergency contact if: your pain is not controlled, your pain is worsening and your temperature is above 101 Follow-up/Referrals: Jonny Cooley MD [Primary Care Provider] - Diet: Regular Addtl Attending Provider Instructions: ACTIVITY RECOMMENDATIONS: SELF CARE INSTRUCTIONS AFTER TOTAL KNEE REPLACEMENT A. You may need to continue a physical therapy program after discharge from the hospital. There are several options available to you. Your doctor will assist you in selecting the best one for you. 1. An out-patient facility 3 times a week for therapy. 2. Home therapy for 1 to 2 weeks with outpatient therapy to follow. 3. Continue working on all exercises taught by physical therapy three times a day for 20 minutes on non-therapy days. Your goals should be to increase the bending of your knee to 90 degrees and beyond and to fully straighten your knee. Ice and elevate knee after exercise. B. Weight as tolerated with a walker or as instructed by your physician. C. It is okay to shower if minimal to no drainage from incision. No Baths. Do not soak wound. D. Make walking a part of your daily routine. Be up as much as comfortable with rest periods throughout the day. Rest with leg elevation is very important. Use the ice wrap frequently for the first 3-4 weeks. E. There are no restrictions on activities. You may ride in a car, shop, participate in control systems technician and all social activities. F. Wear the long elastic stockings (JACINTO hose) 20 hours a day for one month after surgery. They can be removed several times a day for laundering and when showering. SPECIAL CARE INSTRUCTIONS: VERY IMPORTANT TO READ AND REVIEW A. Take Aspirin (blood thinning medications) as directed by your doctor. If on Coumadin, have a pro-time (blood test) drawn according to your doctor's instructions. This will tell the doctor how well the Coumadin is thinning your blood. B. There are a few signs you need to watch for after you are home. Call [facility] [place] if you notice any of the followin. Increased severe knee pain. Some pain is expected especially when you exercise. 2. Increased swelling in your leg or knee; pain or swelling of the calf mus virgilio in either lower leg. 3. Any redness or fluid drainage from the incision. 4. Shortness of breath or chest pain. 5. A Temperature of 101 degrees F or greater. C. Please call [facility] at if you have any concerns or questions about your operation or recovery. The doctor or his nurse will return your call promptly. D. You must take antibiotics before dental work, bladder, bowel or other surgery. Your doctor will provide you with a permanent care to carry describing this precaution. FOLLOW UP VISIT: If appointment is not already scheduled: Please call [facility] to make a follow-up appointment for In 2 days at . Pending Studies at Discharge: No Stand-Alone Forms: My [facility] Materialise, Smoking Cessation Medications and DC Order Prescriptions: New aspirin 81 mg tablet,delayed release (DR/EC) 81 mg PO BID Qty: 60 RF: 0 Continued potassium chloride [Klor-Con M20] 20 mEq tablet,ER particles/crystals 20 meq PO QAM RF: 0 furosemide 20 mg tablet 20 mg PO QAM RF: 0 albuterol sulfate [Ventolin HFA] 90 mcg/actuation Hfa Aerosol Inhaler 2 puff INHALATION QID PRN (Reason: Shortness Of Breath) RF: 0 amlodipine 5 mg tablet 5 mg PO QAM RF: 0 tramadol 50 mg tablet 50 mg PO Q4H PRN (Reason: Pain) RF: 0 ascorbic acid (vitamin C) [Vitamin C] 250 mg Tablet,Chewable 0 mg PO QAM RF: 0 zinc 50 mg Tablet 0 mg PO QAM RF: 0 cholecalciferol (vitamin D3) [Vitamin D3] 25 mcg (1,000 unit) Capsule 0 mcg PO QAM RF: 0 Breo Ellipta 200-25 mcg/dose blister with device 1 inh INHALATION BID RF: 0 Centrum Chewables 8 mg-400 mcg- 80 mcg Tablet,Chewable 1 tab-cap PO QAM RF: 0 Discontinued cephalexin 500 mg capsule 500 mg PO TID RF: 0 Discharge Orders: Discharge Order (Routine); Ordered 05/10/21 Ordered By: Hieu Akins Admission Data Admit Date/Time: 05/05/21 16:21 Attending Provider: Louie Bajwa Admit Provider: Louie Bajwa Primary Care Provider: Jonny Cooley Other Providers: Pop Pineda ; [facility],Home [facility] Other Interventions: Discharge Summary Assessment (RN) Last Done: 05/10/21 10:27
== END 2021-05-10 12:02 | disposition home health service (06) | DRG 603 ==
LOC: ED 12:58 → 3E 16:21
DX: Z96.652 Presence of left artificial knee joint; Z88.6 Allergy status to analgesic agent; Z79.899 Other long term (current) drug therapy; L03.116 Cellulitis of left lower limb; Z87.891 Personal history of nicotine dependence